=== PATIENT | male | born 1985 | race American Indian/Alaskan Native ===

== ENCOUNTER 2018-05-21 22:22 | Emergency (ER) | payer SELFPAY ==
[2018-05-21 22:35] VITALS: BMI 25.7
[2018-05-21] MEDS ORDERED: Sodium Chloride 0.9% 1,000 ML IV STA (22:42)
--- NOTE | 2018-05-21 22:46 | ED PDOC ---
Arrival/HPI <Barney Santiago - Last Filed: 05/21/18 23:40> - General Historian: Patient - History of Present Illness Narrative History of Present Illness (Text): 05/21/18 22:43 32 y/o male, no significant pmh, nkda, no recent traveling, c/o abdominal pain/nausea/vomiting/diarrhea x 2 days. LLQ pain, associated with nausea/vomiting/diarrhea, no fever or chills but admits fatigue, no diarrhea, no dizziness, no change in vision, no other medical or psychological complaints. <Bijan Che - Last Filed: 05/22/18 02:07> - General Chief Complaint: GI Problem Past Medical History - Provider Review Nursing Documentation Reviewed: Yes - Cardiac Hx Cardiac Disorders: No - Pulmonary Hx Respiratory Disorders: No - Neurological Hx Neurological Disorder: No - HEENT Hx HEENT Disorder: No - Renal Hx Renal Disorder: No - Endocrine/Metabolic Hx Endocrine Disorders: No - Hematological/Oncological Hx Blood Disorders: No - Integumentary Hx Dermatological Disorder: No - Musculoskeletal/Rheumatological Hx Musculoskeletal Disorders: No - Gastrointestinal Hx Gastrointestinal Disorders: No - Genitourinary/Gynecological Hx Genitourinary Disorders: No - Psychiatric Hx Psychophysiologic Disorder: No Hx Substance Use: No - Anesthesia Hx Anesthesia: No <Bijan Che - Last Filed: 05/22/18 02:07> Family/Social History - Physician Review Nursing Documentation Reviewed: Yes Family/Social History: Unknown Family HX Smoking Status: Never Smoked Hx Alcohol Use: No Hx Substance Use: No <Bijan Che - Last Filed: 05/22/18 02:07> Allergies/Home Meds <Barney Santiago - Last Filed: 05/21/18 23:40> <Bijan Che - Last Filed: 05/22/18 02:07> Allergies/Adverse Reactions: Allergies No Known Allergies Allergy (Verified 05/21/18 22:35) Review of Systems - Review of Systems Constitutional: Fatigue. absent: Fevers Eyes: absent: Vision Changes ENT: absent: Hearing Changes Respiratory: absent: SOB, Cough Cardiovascular: absent: Chest Pain Gastrointestinal: Abdominal Pain, Diarrhea, Nausea, Vomiting. absent: Constipation Musculoskeletal: absent: Arthralgias, Back Pain Skin: absent: Rash, Pruritis Neurological: absent: Headache, Dizziness Psychiatric: absent: Anxiety, Depression, Suicidal Ideation <Bijan Che - Last Filed: 05/22/18 02:07> Physical Exam Vital Signs Temp Pulse Resp BP Pulse Ox 05/21/18 22:35 97.8 F 77 17 125/89 99 <PamelaBarney - Last Filed: 05/21/18 23:40> Vital Signs Reviewed: Yes Vital Signs Temp Pulse Resp BP Pulse Ox 05/21/18 22:35 97.8 F 77 17 125/89 99 Temperature: Afebrile Blood Pressure: Normal Pulse: Regular Respiratory Rate: Normal Appearance: Positive for: Well-Appearing, Non-Toxic, Comfortable Pain Distress: Moderate Mental Status: Positive for: Alert and Oriented X 3 - Systems Exam Head: Present: Atraumatic, Normocephalic Pupils: Present: PERRL Extroacular Muscles: Present: EOMI Conjunctiva: Present: Normal Mouth: Present: Moist Mucous Membranes Neck: Present: Normal Range of Motion Respiratory/Chest: Present: Clear to Auscultation, Good Air Exchange. No: Respiratory Distress, Accessory Muscle Use Cardiovascular: Present: Regular Rate and Rhythm, Normal S1, S2. No: Murmurs Abdomen: Present: Tenderness (LLQ), Normal Bowel Sounds. No: Distention, Peritoneal Signs, Rebound, Guarding, McBurney's Point Tender, Rovsing's Sign Present Back: Present: Normal Inspection Upper Extremity: Present: Normal Inspection. No: Cyanosis, Edema Lower Extremity: Present: Normal Inspection. No: Edema Neurological: Present: GCS=15, CN II-XII Intact, Speech Normal, Motor Func Grossly Intact, Normal Cerebellar Funct, Gait Normal, Memory Normal Skin: Present: Warm, Dry, Normal Color. No: Rashes Psychiatric: Present: Alert, Oriented x 3, Normal Insight, Normal Concentration <Bijan Che - Last Filed: 05/22/18 02:07> Medical Decision Making - Lab Interpretations Lab Results: Total Bilirubin 0.5 mg/dL (0.2-1.3) 05/21/18 22:55 AST 32 U/L (17-59) 05/21/18 22:55 ALT 30 U/L (7-56) 05/21/18 22:55 Alkaline Phosphatase 76 U/L (38-126) 05/21/18 22:55 Total Protein 8.3 g/dL (5.8-8.3) 05/21/18 22:55 Albumin 4.1 g/dL (3.0-4.8) 05/21/18 22:55 Globulin 4.2 gm/dL 05/21/18 22:55 Albumin/Globulin Ratio 1.0 (1.1-1.8) L 05/21/18 22:55 Lipase 63 U/L (23-300) 05/21/18 22:55 Urine Color Yellow (YELLOW) 05/21/18 22:55 Urine Appearance Clear (CLEAR) 05/21/18 22:55 Urine pH 6.0 (4.7-8.0) 05/21/18 22:55 Ur Specific Gilbert >= 1.030 (1.005-1.035) 05/21/18 22:55 Urine Protein Trace mg/dL (<30 mg/dL) H 05/21/18 22:55 Urine Glucose (UA) Negative mg/dL (NEGATIVE) 05/21/18 22:55 Urine Ketones Negative mg/dL (NEGATIVE) 05/21/18 22:55 Urine Blood Negative (NEGATIVE) 05/21/18 22:55 Urine Nitrate Negative (NEGATIVE) 05/21/18 22:55 Urine Bilirubin Negative (NEGATIVE) 05/21/18 22:55 Urine Urobilinogen 0.2 E.U./dL (<1 E.U./dL) 05/21/18 22:55 Ur Leukocyte Esterase Negative Kishan/uL (NEGATIVE) 05/21/18 22:55 - RAD Interpretation Radiology Orders: 05/21/18 22:42 ABD & PELVIS IV CONTRAST ONLY [CT] Stat - Medication Orders Current Medication Orders: Sodium Chloride (Sodium Chloride 0.9%) 1,000 mls @ 999 mls/hr IV .Q1H1M STA Stop: 05/21/18 23:42 Last Admin: 05/21/18 22:58 Dose: 999 mls/hr eMAR Start Stop Document 05/21/18 22:58 RE (Rec: 05/21/18 22:58 RE [facility]-ER-20) Intravenous Solution Start Date 05/21/18 Start Time 22:58 Discontinued Medications Famotidine (Pepcid) 20 mg IVP STAT STA Stop: 05/21/18 22:43 Last Admin: 05/21/18 22:55 Dose: 20 mg IVP Administration Document 05/21/18 22:55 RE (Rec: 05/21/18 22:55 RE [facility]-ER-20) Charges for Administration # of IVP Administrations 1 Ketorolac Tromethamine (Toradol) 30 mg IVP STAT STA Stop: 05/21/18 22:43 Last Admin: 05/21/18 22:56 Dose: 30 mg MAR Pain Assessment Document 05/21/18 22:56 RE (Rec: 05/21/18 22:57 RE [facility]-ER-20) Pain Reassessment Is this a pain reassessment? No Sleep Is patient sleeping during reassessment? No Presence of Pain Presence of Pain No Pain Scale Used Protocol: PSCALES Pain Scale Used Numeric Location Left, Right or Bilateral Left Description Description Constant IVP Administration Document 05/21/18 22:56 RE (Rec: 05/21/18 22:57 RE [facility]-ER-20) Charges for Administration # of IVP Administrations 1 Ondansetron HCl (Zofran Inj) 4 mg IVP STAT STA Stop: 05/21/18 22:43 Last Admin: 05/21/18 22:55 Dose: 4 mg IVP Administration Document 05/21/18 22:55 RE (Rec: 05/21/18 22:55 RE [facility]-ER-20) Charges for Administration # of IVP Administrations 1 <Barney Santiago - Last Filed: 05/21/18 23:40> ED Course and Treatment: 05/21/18 22:47 -Labs -CT abdomen and pelvis -IVF/pepcid/zofran/toradol -Observe and reassess 05/22/18 01:57 -Labs are non significant -Rapid flu is negative -UA show no UTI -CT abdomen and pelvis: Mild changes of uncomplicated colitis. -Pt. feels well, much better, discussed about the labs/radiology result, will treat with cipro and flagyl. I discussed the fluoroquinolones adverse side effect including but not limited to prolong QT and achilles tendon rupture, advised the patient avoid gym and the patient is awared plus agreed to accept these side effect/risk. -Discharge home with cipro/flagyl, pepcid, zofran, stay hydrated, bed rest, tylenol for pain as needed, avoid dairy diet until symptoms resolved, BRAT diet, avoid gym and exercise while taking ciprofloxacin as it can causes prolong QT and achilles tendon rupture, stay hydrated, follow up with your own pmd and GI within 2 days, return to the ER for any new or worsening signs or symptoms. - RAD Interpretation Radiology Orders: 05/21/18 22:42 ABD & PELVIS IV CONTRAST ONLY [CT] Stat CT SCAN OF THE ABDOMEN AND PELVIS WITH CONTRAST. CLINICAL HISTORY: LLQ pain, nausea/vomiting/diarrhea (Hx). TECHNIQUE: Multiple axial and coronal CT images were obtained through the abdomen and pelvis after administration of intravenous contrast material. COMMENTS: Fat containing umbilical hernia without incarceration. Uncomplicated colonic diverticulosis. Mild diffuse thickening of the sigmoid colon. The liver is of uniform attenuation without mass or defect. There is no intra or extrahepatic biliary ductal dilatation. The spleen is normal. The gallbladder is within normal limits. The pancreas is of normal contour and attenuation characteristics. There is no evidence of adrenal mass. Both kidneys demonstrate prompt and equal nephrograms. The kidneys are normal in size, shape and configuration. There is no evidence of renal or ureteral mass. No renal or ureteral calculi are identified. There is no hydroureter or hydronephrosis. No evidence for appendicitis. No evidence for small or large bowel obstruction. There is no evidence of abdominal ascites or lymphadenopathy. There is no evidence of intrinsic or extrinsic bladder mass. There is no pelvic ascites or lymphadenopathy. Images of the lung bases show no evidence of pleural or parenchymal mass. There are no pleural effusions. The bony structures are free of lytic or blastic lesions. IMPRESSION: Mild changes of uncomplicated colitis. Thank you for your kind referral of this patient. Electronically signed on May 22, 2018 1:50:42 AM EDT by: Tamika Miller M.D., Certified by ABR, MSK, Neuroradiology [employer] Education Teacher: Radiologist - Medication Orders Current Medication Orders: Famotidine (Pepcid) 20 mg IVP STAT STA Stop: 05/21/18 22:43 Sodium Chloride (Sodium Chloride 0.9%) 1,000 mls @ 999 mls/hr IV .Q1H1M STA Stop: 05/21/18 23:42 Ketorolac Tromethamine (Toradol) 30 mg IVP STAT STA Stop: 05/21/18 22:43 Ondansetron HCl (Zofran Inj) 4 mg IVP STAT STA Stop: 05/21/18 22:43 <Bijan Che Q - Last Filed: 05/22/18 02:07> - PA / ELECTRICIAN / Resident Statement FRANK has reviewed & agrees with the documentation as recorded. <Barney Santiago - Last Filed: 05/21/18 23:40> - PA / ELECTRICIAN / Resident Statement FRANK has reviewed & agrees with the documentation as recorded. <CheBijan Saucedo - Last Filed: 05/22/18 02:07> Disposition/Present on Arrival <Barney Santiago - Last Filed: 05/21/18 23:40> - Present on Arrival Any Indicators Present on Arrival: No History of DVT/PE: No History of Uncontrolled Diabetes: No Urinary Catheter: No History of Decub. Ulcer: No History Surgical Site Infection Following: None - Disposition Have Diagnosis and Disposition been Completed?: Yes Disposition Time: 02:01 Patient Plan: Discharge <CheBijan Saucedo - Last Filed: 05/22/18 02:07> - Disposition Diagnosis: Colitis Disposition: HOME/ ROUTINE Patient Problems: Current Active Problems Problem Status Onset Colitis Acute Condition: IMPROVED Additional Instructions: -Discharge home with cipro/flagyl, pepcid, zofran, stay hydrated, bed rest, tylenol for pain as needed, avoid dairy diet until symptoms resolved, BRAT diet, avoid gym and exercise while taking ciprofloxacin as it can causes prolong QT and achilles tendon rupture, stay hydrated, follow up with your own pmd and GI within 2 days, return to the ER for any new or worsening signs or symptoms. Prescriptions: Ciprofloxacin/Ciprofloxa HCl [Ciprofloxacin] 500 mg PO BID #14 tab Famotidine [Pepcid] 20 mg PO BID #10 tab Metronidazole [Flagyl] 500 mg PO TID #30 tab Ondansetron [Zofran] 4 mg PO Q8H PRN #12 tab PRN Reason: Other Referrals: PCP,NO [Primary Care Provider] - Follow up with primary Saw Farley DO [Staff Provider] - Follow up with primary [facility] [Outside] - Follow up with primary Forms: [employer] (Thai), WORK NOTE
[2018-05-21 23:28] LABS: BASO # 0.01 K/mm3 (0.0-2.0); BASO % 0.1 % (0.0-3.0); EOS % 0.6 % (1.5-5.0); HEMOGLOBIN 14.3 g/dL (14.0-18.0); LYMPH # 1.7 (1.2-3.4); LYMPH % 24.2 % (22.0-35.0); MEAN CELL VOLUME 83.1 fl (80.0-105.0); MEAN CORPUSCULAR HEMOGLOBIN 27.1 pg (25.0-35.0); MEAN CORPUSCULAR HGB CONC 32.6 g/dl (31.0-37.0); MEAN PLATELET VOLUME 9.8 fl (7.0-11.0); MONO # 0.6 (0.1-0.6); MONO % 8.8 % (1.0-6.0); RBC 5.27 10^6/uL (3.5-6.1); URINE BILIRUBIN NEGATIVE (NEGATIVE); URINE BLOOD NEGATIVE (NEGATIVE); URINE GLUCOSE (UA) NEGATIVE (NEGATIVE); URINE LEUKOCYTE ESTERASE NEGATIVE Leu/uL (NEGATIVE); URINE PROTEIN TRACE mg/dL (<30 mg/dL); URINE UROBILINOGEN 0.2 E.U./dL (<1 E.U./dL); WHITE BLOOD COUNT 7.1 10^3/uL (4.5-11.0)
[2018-05-21 23:31] LABS: URINE COLOR YELLOW (YELLOW)
[2018-05-21 23:33] LABS: URINE APPEARANCE CLEAR (CLEAR)
[2018-05-21 23:35] LABS: ALBUMIN 4.1 g/dL (3.0-4.8); ALT/SGPT 30 U/L (7-56); AST/SGOT 32 U/L (17-59); BLOOD UREA NITROGEN 13 mg/dL (7-21); CALCIUM 9.9 mg/dL (8.4-10.5); GFR NON-AFRICAN AMERICAN > 60; LIPASE 63 U/L (23-300)
[2018-05-21 23:45] LABS: URINE BACTERIA RARE /hpf; URINE EPITHELIAL CELLS 0 - 2 /hpf (0-5); URINE RBC 0 - 2 /hpf (0-2)
[2018-05-21 23:46] LABS: URINE WBC 0 - 2 /hpf (0-6)
[2018-05-21] MEDS ORDERED: Iohexol 350 MG/100 ML VIAL ONE (23:47)
[2018-05-22 02:36] VITALS: BP 136/78; PULSE 76; RESP 18; TEMP 98.1; O2SAT 98
--- NOTE | 2018-05-22 10:58 | CT ---
Date of service: 05/22/2018 PROCEDURE: CT Abdomen and Pelvis with contrast HISTORY: LLQ pain, nausea/vomiting/diarrhea COMPARISON: None. TECHNIQUE: Contrast dose: 100 cc of Omni 350 Radiation dose: Total exam DLP = 518.0 mGy-cm. This CT exam was performed using one or more of the following dose reduction techniques: Automated exposure control, adjustment of the mA and/or kV according to patient size, and/or use of iterative reconstruction technique. FINDINGS: LOWER THORAX: Unremarkable. LIVER: Unremarkable. No gross lesion or ductal dilatation. GALLBLADDER AND BILE DUCTS: Unremarkable. PANCREAS: Unremarkable. No gross lesion or ductal dilatation. SPLEEN: Unremarkable. ADRENALS: Unremarkable. No mass. KIDNEYS AND URETERS: Unremarkable. No hydronephrosis. No solid mass. VASCULATURE: Unremarkable. No aortic aneurysm. No aortic atherosclerotic calcification or mural plaque present. BOWEL: There is mild mural thickening in the descending and sigmoid colon, possible colitis APPENDIX: Normal appendix. PERITONEUM: Unremarkable. No free fluid. No free air. LYMPH NODES: Unremarkable. No enlarged lymph nodes. BLADDER: Unremarkable. REPRODUCTIVE: Unremarkable. BONES: No acute fracture. OTHER FINDINGS: The report concurs with the preliminary [facility] report IMPRESSION: There is mild mural thickening in the descending and sigmoid colon, possible colitis
== END 2018-05-22 02:34 | disposition home or self-care (01) ==
LOC: ED 22:22
DX: K52.9 Noninfective gastroenteritis and colitis, unspecified (principal)
CPT/HCPCS: 74177; 80053; 81001; 83690; 83735; 85025; 87804; 96374; 96375; 99283; J1885; J2405; J7030; Q9967